=== PATIENT | male | born 1940 | race Caucasian/White ===

== ENCOUNTER 2024-07-17 09:43 | Outpatient (AMB) | payer MEDICARE, OTHER, SELFPAY ==
--- NOTE | 2024-07-17 09:57 | MHC.OFFVIS ---
Vital Signs 07/17/24 10:00 Height 5 ft 9 in Weight 175 lb BMI 25.8 Intake Visit Reasons: [employer] EX[employer]IC-Right shoulder pain Intake Note: Tushar is a 83 year old male who presents with complaints of progressively worsening right shoulder pain. The patient describes his pain as sharp in nature. His pain has gotten worse over the last year in spite of continued non operative treatments. He has taken Celebrex which gives him mild relief. He denies any weakness. He has also done physical therapy exercises which aggravated his pain. Allergies HAYFEVER Allergy (Unknown, Uncoded 06/10/20 14:48) RUNNY NOSE Medication List - Last Reconciled 07/17/24 by Real Draper MD celecoxib (Celebrex) 200 mg PO DAILY PRN Physical Exam Vital Signs: BMI result Body Mass Index 25.8 Const Other: Well-nourished well-developed very friendly male awake alert and oriented x3 in no acute distress Extrem Other: Bilateral upper extremity examination shows good capillary refill, no skin lesions noted, normal sensation light touch Right shoulder examination shows slightly decreased range of motion when compared to his left shoulder, 4+ out of 5 strength with supraspinatus testing, positive impingement signs, no instability Office Procedures Joint Injection/Aspiration Joint Injection/Aspiration Primary Site: right shoulder Prep: site was prepped using aseptic technique Injected: 40 mg of, DepoMedrol and 1% plain lidocaine Procedure: The patient tolerated the procedure well Coding 80027 - Large joint Procedure code (CPT) selection complete Results Reviewed Results Reviewed: X-rays of the patient's right shoulder show severe acromioclavicular joint narrowing, a type 2 acromion, no acute bony abnormalities Assessment & Plan Assessment & Plan (1) Impingement of right shoulder: Code(s): M25.811 - Other specified joint disorders, right shoulder Category: Medical Plan Mr. Ybarra presents with right shoulder pain due to impingement syndrome. I had a lengthy discussion with the patient regarding the treatment options. The risks and benefits of a right shoulder cortisone injection were discussed at length with the patient. The patient wished to proceed. He tolerated the injection well. He will continue with his home stretching program. He will contact me prior to his follow-up appointment in 3 months should any questions or concerns arise. Feel free to call me at any time should questions regarding his orthopedic management arise. I spent 22 minutes in reviewing the patient's records and imaging studies, seeing the patient and documenting in the medical record. Orders: Orders AMB Joint Injection/Aspiration 07/17/24 M25.811 - Other specified joint disorders, right shoulder XR shoulder RT min 2V 07/17/24 M25.511 - Pain in right shoulder Medications: New celecoxib (Celebrex) 200 mg PO DAILY PRN 30 caps 4RF pain Coding Level of Care Code New Pt Level 3 (05059) Complex EM visit Add On G2211 Diagnoses Impingement of right shoulder M25.811 CPT Codes Coding - 65660 Large joint: 52238 - Large joint ([id number])
[2024-07-17 10:00] VITALS: BMI 25.8
== END 2024-07-17 10:31 | disposition home or self-care (01) ==
PROVIDERS: PCP Internal Medicine; Visit Provider Orthopaedic Surgery
DX: M75.41 Impingement syndrome of right shoulder (principal); M25.811 Other specified joint disorders, right shoulder
CPT/HCPCS: 20610; 99203; G2211

== ENCOUNTER 2024-07-17 10:13 | Outpatient (REF) | payer MEDICARE, OTHER, SELFPAY | END 2024-07-17 10:14 | disposition home or self-care (01) | LOC: HO.HOSX 10:13 | PROVIDERS: Visit Provider Orthopaedic Surgery | DX: M25.511 Pain in right shoulder (principal); M25.811 Other specified joint disorders, right shoulder | CPT/HCPCS: 20610; 73030; 99202; J1010; J2003 ==

== ENCOUNTER 2024-10-15 10:57 | Outpatient (AMB) | payer MEDICARE, OTHER, SELFPAY ==
--- NOTE | 2024-10-15 11:00 | MHC.OFFVIS ---
Vital Signs 10/15/24 11:05 Height 5 ft 9 in Weight 175 lb BMI 25.8 Intake Visit Reasons: OV- Right shoulder pain Intake Note: Tushar is an 84 year old male who presents with complaints of right shoulder pain. He describes his pain as sharp in nature. He has had cortisone injections in the past which gave him fairly good relief. He has also tried Tylenol and Celebrex which gave him mild relief. He wishes hold off on surgery if at all possible. Allergies HAYFEVER Allergy (Unknown, Uncoded 10/15/24 11:06) RUNNY NOSE Medication List - Last Reconciled 10/15/24 by Real Draper MD celecoxib (Celebrex) 200 mg PO DAILY PRN Physical Exam Vital Signs: BMI result Body Mass Index 25.8 Const Other: Well-nourished well-developed very friendly male awake alert and oriented x3 in no acute distress Extrem Other: Bilateral upper extremity examination shows good capillary refill, no skin lesions noted, normal sensation light touch Right shoulder examination shows slightly decreased range of motion when compared to his left shoulder, 4+ out of 5 strength with supraspinatus testing, positive impingement signs, no instability Office Procedures AMB Joint Injection/Aspiration Joint Injection/Aspiration Primary Site: right shoulder Prep: site was prepped using aseptic technique Injected: 40 mg of, DepoMedrol and 1% plain lidocaine Procedure: The patient tolerated the procedure well Coding 11621 - Large joint Procedure code (CPT) selection complete Assessment & Plan Assessment & Plan (1) Impingement of right shoulder: Code(s): M25.811 - Other specified joint disorders, right shoulder Category: Medical Plan Mr. Ybarra presents with right shoulder pain due to impingement syndrome. The risks and benefits of a right shoulder cortisone injection were discussed at length with the patient. The patient wished to proceed. He tolerated the injection well. He will continue with his range of motion exercises to prevent stiffness. He will contact me prior to his follow-up appointment in 3 months should any questions or concerns arise. Feel free to call me at any time should questions regarding his orthopedic management arise. I spent 22 minutes in reviewing the patient's records and imaging studies, seeing the patient and documenting in the medical record. Orders: Orders AMB Joint Injection/Aspiration Today M25.811 - Other specified joint disorders, right shoulder Medications: Refilled celecoxib (Celebrex) 200 mg PO DAILY PRN 30 caps 4RF pain Coding Level of Care Code Est Pt Level 3 (65638) Complex EM visit Add On G2211 Diagnoses Impingement of right shoulder M25.811 CPT Codes Coding - 24062 Large joint: 82810 - Large joint ([id number])
[2024-10-15 11:05] VITALS: BMI 25.8
--- OUTSIDE RECORDS SUMMARY | 2024-10-15 12:26 | XMS_ITS ---
Author Organization [facility] Address [address] [place] [address] Care Team Providers Care Visitor Services Information Assistant Name Role Phone Ephraim Rios MD Primary Care Provider Radha Zamora Mayra Unavailable [phone] Allergies No Known Allergies REASON FOR VISIT Painful nail(s) aggrevated by shoes and causing difficulty standing/walking., Wart(s) Medications Medication SIG (Take, Route, Frequency, Duration) Notes Start Date End Date Status Ciclopirox Olamine 0.77 % 1 application to affected area Externally Twice a day for 30 days 04/24/2019 Not-Taking Ciclopirox Olamine 0.77 % 1 application Externally Twice a day for 30 days 03/18/2020 Not-Taking Ciclopirox Olamine 0.77 % 1 application Externally Twice a day for 30 days 11/03/2021 Not-Taking Multivitamin PRN Not-Kelton ing Ciclopirox Olamine 0.77 % 1 application Externally Twice a day for 30 days Not-Taking Social History Tobacco Use: Social History Observation Description Date Details (start date - stop date) Never Smoker NA - NA Tobacco Use/Smoking Question Answer Notes Are you a: nonsmoker Additional Findings: Tobacco Non-User Aggressive non-smoker Tobacco use other than smoking: Question Answer Notes Are you an other tobacco user? No Vital Signs Height 5 ft 9 in in 07/24/2024 Weight 175 lbs 07/24/2024 BMI 25.84 kg/m2 07/24/2024 Blood pressure systolic 117 mm Hg 07/24/20 24 Blood pressure diastolic 73 mm Hg 024 Procedures Procedure Date Ordered Date Performed Result Body Sit e 38322-NAYWFLC NAIL, 6 OR MORE 07/24/2024 N/A 25499-Pndk Destruction, 1-14 07/24/2024 N/A Encounters Encounter Location Date Provider Diagnosis [facility] [address] [address] 07/24/2024 Mayra Zamora Tinea unguium B35.1 ; Other viral warts B07.8 ; Pain in right toe(s) M79.674 ; Pain in left toe(s) M79.675 and Pain in right foot M79.671 Assessments Encounter Date Diagnosis (ICD Code) Assessment Notes Treatment Notes Treatment Clinical Notes Section Notes 07/24/2024 Tinea unguium (ICD-10 - B35.1) 07/24/2024 Other viral warts (ICD-10 - B07.8) 07/24/2024 Pain in right toe(s) (ICD-10 - M79.674) 07/24/2024 Pain in left toe(s) (ICD-10 - M79.675) 07/24/2024 Pain in right foot (ICD-10 - M79.671) Plan Of Treatment Pending Test Test Name Order Date 22187-MPJUYQL NAIL, 6 OR MORE 07/24/2024 02800-Frxo Destruction, 1-14 07/24/2024 Next Appt Details Follow Up: prn, Reason: Provider Name:Mayra Zamora , 11/20/2024 11:15:00 AM, [address] [place] [address], [id number], Procedure Notes * Category Sub-Category Detail Notes Wart Treatment Procedure Verrucae(s) were debrided to pin-point bleeding margins with sterile surgical blade, silver nitrate chemocautery applied, recomm. immune-boosting meds such as zinc, recomm. follow up with topical chemosurgical agents, Pt AGAIN, defer any other forms of tx (85961) , Debride Nail 6-10 Nail debridement Performance o f this nail treatment by a nonprofessional would put this patients foot and overall health at risk. Therefore, nail debridement was performed extensively to reduce/remove overall nail length, girth, thickness, subungual debris, and necrotic tissue, by manual and/or electrical means through the use of a nail nipper and/or dremel-type back grinder, to a more viable healthy nail plate or bed tissue 6-10. Silver nitrate used for any petechial bleeding as necessary. Definitive antifungal treatment options have been reviewed and discussed with the patient. The patient chooses, no pharmaceutical tx - 73612 Progress Notes * Tushar BELLODOB: 3 (83 yo M)Acc No.[id number]:07/24/2024 Progress Note Patient:?Tushar Bello Provider:?Mayra Zamora DPM :1940???Age:83 Y???Sex:Male Prakash e:07/24/2024 Address:[address] [place] [address], [facility], [id number] Pcp:Ephraim Rios MD Subjective: * Chief Complaints: * ??? Painful nail(s) aggrevat ed by shoes and causing difficulty standing/walking.Wart(s) * HPI: ???Painful Nails:?Pt States Last PCP Visit:?Date:?04/23/2024 ???Wart:?Pt States Last PCP Visit:?Date:?04/23/2024 * Medical History:? 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 * Social History:?Tobacco Use:?Tobacco Use/Smoking?Are you a:?nonsmoker ?Additional Findings: Tobacco Non-User?Aggressive non-smoker ?Tobacco use other than smoking?Are you an other tobacco user??No ???Miscellaneous:?no Caffeine, frequency: decaf coffee , 3-5 cups per day. ?Children: yes. ?Exercise: yes, walking. ?Marital status: single. ?Occupation: retired- [employer]. * Medications:?Not-Taking/PRNM ultivitamin , Notes: PRNCiclopirox Olamine 0.77 % Cream 1 application Externally Twice a dayCiclopirox Olamine 0.77 % Cream 1 application Externally Twice a dayCiclopirox Olamine 0.77 % Cream 1 application Externally Twice a dayCiclopirox Olamine 0.77 % Cream 1 application to affected area Externally Twice a dayMedication List reviewed and reconciled with the patientNot-Taking/PRN Multivitamin , Notes: PRNNot-Taking/PRN Ciclopirox Olamine 0.77 % Cream 1 application Externally Twice a dayNot-Taking/PRN Ciclopirox Olamine 0.77 % Cream 1 application Externally Twice a dayNot-Taking/PRN Ciclopirox Olamine 0.77 % Cream 1 application Externally Twice a dayNot-Taking/PRN Ciclopirox Olamine 0.77 % Cream 1 application to affected area Externally Twice a dayMedication List reviewed and reconciled with the patient * Allergies:?N.K.D.A.yes[Bruna gregory Verified] Objective: * Vitals:?Ht: 5 ft 9 in, Wt: 1 75, BMI: 25.84, Shoe size: 9.5-10, BP: 117/73 mm Hg, Wt-k.38 kg. * Examination: ???Nails: ?NAILS are:?elongated,overgrown,dystrophic,greater than 3mm thick,discolored and friable with crumbly malodorous subungual debris, with pain on palpation , 1-5 B/L ,.?Dermatologic: ?VERRUCA:?reveals Multiple ( 3), multi-loculated , mosaic, round, raised, flat-topped, petechial bleeding papulae(s), with cauliflower appearance and interrruption of skin lines, with pain to lateral compression, , plantar Midfoot, right. , and size estimated at 3-4 mm diameter?.? Assessment: * Assessment: 1.?Tinea unguium - B35.1?2.? Other viral warts - B07.8 (Primary)?3.?Pain in right toe(s) - M79.674?4.?Pain in left toe(s) - M79.675?5.?Pain in right foot - M79.671? Plan: * Treatment: 2.?Tinea unguium?Procedure: 04208-ULBWGAR NAIL, 6 OR MORE * Procedures:?Debride Nail 6-10:?Nail debridement?Performance of this nail treatment by a nonprofessional would put this patients foot and overall health at risk. Therefore, nail debridement was performed extensively to reduce/remove overall nail length, girth, thickness, subungual debris, and necrotic tissue, by manual and/or electrical means through the use of a nail nipper and/or dremel-type back grinder, to a more viable healthy nail plate or bed tissue 6-10. Silver nitrate used for any petechial bleeding as necessary. Definitive antifungal treatment options have been reviewed and discussed with the patient. The patient chooses, no pharmaceutical tx - 57950.?Wart Treatment:?Procedure?Verrucae(s) were debrided to pin-point bleeding margins with sterile surgical blade, silver nitrate chemocautery applied, recomm. immune-boosting meds such as zinc, recomm. follow up with topical chemosurgical agents, Pt AGAIN, defer any other forms of tx (02732) ,.? * Procedure Codes:?49306 DEBRI DE NAIL, 6 OR MORE, Modifiers: XS 85811 Wart Destruction, 1-14, Modifiers: XS * Follow Up:?prn * Images: * Sign off status: Completed true * Provider:?Mayra Zamora DPM Date:?2023 Generated for Karin diaz/Ramo/Silvia on:?10/15/2024 12:26 PM EST History and Physical Notes * HPI (History of Present Illness) Category Sub-Category Detail Notes Category Not es Painful Nails Pt States Last PCP Visit: Date:: 04/23/2024 Wart Pt States Last PCP Visit: Date:: 04/23/2024 Examination Category Sub-Category Detail Notes Category Not es Dermatologic SKIN FINDINGS: VERRUCA: reveals Multiple ( 3 ), multi-loculated , mosaic, round, raised, flat- topped, petechial bleeding papulae(s), with cauliflower appearance and interrruption of skin lines, with pain to lateral compression, , plantar Midfoot, right. , and size estimated at 3-4 mm diameter Orthopedic DIGITAL DEFORMITIES: Nails NAILS are: elongated,overgr own,dystrophic,greater than 3mm thick,discolored and friable with crumbly malodorous subungual debris, with pain on palpation , 1-5 B/L ,
--- OUTSIDE RECORDS SUMMARY | 2024-10-15 12:26 | XMS_ITS ---
Author Organization [facility] Address [address] [place] [address] Care Team Providers Care Systems Spec Name Role Phone Ephraim Rios MD Primary Care Provider ShareeMayra Samson Unavailable [phone] Allergies No Known Allergies REASON FOR VISIT Painful nail(s) aggrevated by shoes and causing difficulty standing/walking., Wart(s) Medications Medication SIG (Take, Route, Frequency, Duration) Notes Start Date End Date Status Multivitamin PRN Active Ciclopirox Olamine 0.77 % 1 application Externally Twice a day for 30 days 11/03/2021 Not-Taking Ciclopirox Olamine 0.77 % 1 application Externally Twice a day for 30 days Not-Taking Ciclopirox Olamine 0.77 % 1 application Externally Twice a day for 30 days 03/18/2020 Not-Taking Ciclopirox Olamine 0.77 % 1 application to affected area Externally Twice a day for 30 days 04/24/2019 Not-Taking Social History Tobacco Use: Social History Observation Description Date Details (start date - stop date) Never Smoker NA - NA Tobacco Use/Smoking Question Answer Notes Are you a: nonsmoker Additional Findings: Tobacco Non-User Aggressive non-smoker Alcohol Screen Question Answer Notes Did you have a drink containing alcohol in the p ast year? No Points 0 Interpretation Negative Tobacco use other than smoking: Question Answer Notes Are you an other tobacco user? No Vital Signs Height 5 ft 9 in in 03/20/2024 Weight 180 lbs 03/20/2024 BMI 26.58 kg/m2 03/20/2024 Blood pressure systolic 116 mm Hg 03/20/20 24 Blood pressure diastolic 75 mm Hg 024 Procedures Procedure Date Ordered Date Performed Result Body Sit e 57329-FQHQQLG NAIL, 6 OR MORE 03/20/2024 N/A 03272-Yzyq Destruction, 1-14 03/20/2024 N/A Encounters Encounter Location Date Provider Diagnosis [facility] [place] [address] [place] [address] 03/20/2024 Mayra Zamora Tinea unguium B35.1 ; Other viral warts B07.8 ; Pain in right toe(s) M79.674 ; Pain in left toe(s) M79.675 and Pain in right foot M79.671 Assessments Encounter Date Diagnosis (ICD Code) Assessment Notes Treatment Notes Treatment Clinical Notes Section Notes 03/20/2024 Tinea unguium (ICD-10 - B35.1) 03/20/2024 Other viral warts (ICD-10 - B07.8) 03/20/2024 Pain in right toe(s) (ICD-10 - M79.674) 03/20/2024 Pain in left toe(s) (ICD-10 - M79.675) 03/20/2024 Pain in right foot (ICD-10 - M79.671) Plan Of Treatment Pending Test Test Name Order Date 90688-ECEMQYA NAIL, 6 OR MORE 03/20/2024 91561-Lmlp Destruction, 1-14 03/20/2024 Next Appt Details Follow Up: prn, Reason: Provider Name:Mayra Zamora , 11/20/2024 11:15:00 AM, [address] [place], [address], Procedure Notes * Category Sub-Category Detail Notes Wart Treatment Procedure Verrucae(s) were debrided to pin-point bleeding margins with sterile surgical blade, silver nitrate chemocautery applied, recomm. immune-boosting meds such as zinc, recomm. follow up with topical chemosurgical agents, Pt STILL, CONT TO defer any other forms of tx (43016) , Debride Nail 6-10 Nail debridement Nail debridem ent performed extensively to reduce/remove overall nail length and girth, subungual debris, and necrotic tissue, by manual and electrical means with use of a nail nipper and/or dremel, to more viable healthy nail plate or bed tissue 6-10. Silver nitrate used for any petechial bleeding as necessary. Patient chooses, no pharmaceutical tx (77280) Progress Notes * Tushar BELLODOB: 3 (83 yo M)Acc No.[id number]:03/20/2024 Progress Note Patient:?Tushar Bello Provider:?Mayra Zamora DPM :1940???Age:83 Y???Sex:Male Prakash e:03/20/2024 Address:[address] [place], [place] [address]r'[facility], [facility], [facility] Pcp:Ephraim Rios MD Subjective: * Chief Complaints: * ??? Painful nail(s) aggrevat ed by shoes and causing difficulty standing/walking.Wart(s) * HPI: ???Painful Nails:?Pt States Last PCP Visit:?Date:?03/19/2024 ???Wart:?Pt States Last PCP Visit:?Date:?03/19/2024 * Medical History:? 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 * Social History:?Tobacco Use:?Tobacco Use/Smoking?Are you a:?nonsmoker ?Additional Findings: Tobacco Non-User?Aggressive non-smoker ?Tobacco use other than smoking?Are you an other tobacco user??No ???Drugs/Alcohol:?Drugs?Have you used drugs other than those for medical reasons in the past 12 months??No ?Alcohol Screen?Did you have a drink containing alcohol in the past year??No ?Points?0 ?Interpretation?Negative ???Miscellaneous:?no Caffeine, frequency: decaf coffee , 3-5 cups per day. ?Children: yes. ?Exercise: yes, walking. ?Marital status: single. ?Occupation: retired- [employer]. * Medications:?TakingMultivita min , Notes: PRNTaking Multivitamin , Notes: PRNNot-Taking/PRNCiclopirox Olamine 0.77 % Cream 1 application Externally Twice a dayCiclopirox Olamine 0.77 % Cream 1 application Externally Twice a dayCiclopirox Olamine 0.77 % Cream 1 application Externally Twice a dayCiclopirox Olamine 0.77 % Cream 1 application to affected area Externally Twice a dayMedication List reviewed and reconciled with the patientNot-Taking/PRN Ciclopirox Olamine 0.77 % Cream 1 application Externally Twice a dayNot-Taking/PRN Ciclopirox Olamine 0.77 % Cream 1 application Externally Twice a dayNot-Taking/PRN Ciclopirox Olamine 0.77 % Cream 1 application Externally Twice a dayNot-Taking/PRN Ciclopirox Olamine 0.77 % Cream 1 application to affected area Externally Twice a dayMedication List reviewed and reconciled with the patient * Allergies:?N.K.D.A.yes[Aller gies Verified] Objective: * Vitals:?Ht: 5 ft 9 in, Wt: 1 80, BMI: 26.58, Shoe size: 9.5-10, BP: 116/75 mm Hg, Wt-k.65 kg. * Examination: ???Nails: ?NAILS are:?elongated,overgrown,dystrophic,greater than 3mm thick,discolored and friable with crumbly malodorous subungual debris, with pain on palpation , 1-5 B/L ,.?Dermatologic: ?VERRUCA:?reveals Multiple ( 2), multi-loculated , mosaic, round, raised, flat-topped, petechial [...] - M79.671? Plan: * Treatment: 2.?Tinea unguium?Procedure: 50214-NEDZKKX NAIL, 6 OR MORE * Procedures:?Debride Nail 6-10:?Nail debridement?Nail debridement performed extensively to reduce/remove overall nail length and girth, subungual debris, and necrotic tissue, by manual and electrical means with use of a nail nipper and/or dremel, to more viable healthy nail plate or bed tissue 6-10. Silver nitrate used for any petechial bleeding as necessary. Patient chooses, no pharmaceutical tx (27503) .?Wart Treatment:?Procedure?Verrucae(s) were debrided to pin-point bleeding margins with sterile surgical blade, silver nitrate chemocautery applied, recomm. immune-boosting meds such as zinc, recomm. follow up with topical chemosurgical agents, Pt STILL, CONT TO defer any other forms of tx (89128) ,.? * Procedure Codes:?93223 DEBRI DE NAIL, 6 OR MORE, Modifiers: XS 69906 Wart Destruction, 1-14, Modifiers: XS * Follow Up:?prn * Images: * Sign off status: Completed true * Provider:?Mayra Zamora DPM Date:?2023 Generated for Karin diaz/Ramo/eTransmitting on:?10/15/2024 12:26 PM EST History and Physical Notes * HPI (History of Present Illness) Category Sub-Category Detail Notes Category Not es Painful Nails Pt States Last PCP Visit: Date:: 03/19/2024 Wart Pt States Last PCP Visit: Date:: 03/19/2024 Examination Category Sub-Category Detail Notes Category Not es Dermatologic SKIN FINDINGS: VERRUCA: reveals Multiple ( 2 ), multi-loculated , mosaic, round, raised, flat- [...]
--- OUTSIDE RECORDS SUMMARY | 2024-10-15 12:27 | XMS_ITS ---
Author Organization [facility] Address [address] [place] [address] Care Team Providers Care Wood Tank Erector Name Role Phone Blanca FLOWERS, Ephraim Primary Care Provider Mayra Pool [phone] Encounters Encounter Location Date Provider Diagnosis [address] [address] 03/13/2024 Mayra Zamora Plan Of Treatment Next Appt Details Provider Name:Mayra Zamora , 11/20/2024 11:15:00 AM, [address] [place], [address], Progress Notes * Tushar BELLODOB: 3 (84 yo M)Acc No.[id number]:03/13/2024 Progress Note Patient:?Tushar BELLO Provider:?Mayra Zamora DPM :1940???Age:83 Y???Sex:Male Prakash e:03/13/2024 Address:[address] [place], [place] [address] Pcp:Ephraim Rios MD Subjective: * Chief Complaints: * ??? * Medical History:? Objective: * Vitals:? Assessment: Plan: * Treatment: * Images: * The named appointment provid er may or may not be the originator of this progress note, and it is not deemed complete until electronically signed by the appointment provider. Sign off status: Pending * Provider:Salvatore Zamora DPM Date:?2023 Generated for Karin diaz/Ramo/Silvia on:?10/15/2024 12:26 PM EST
--- OUTSIDE RECORDS SUMMARY | 2024-10-15 12:27 | XMS_ITS | Patient Health Record ---
[facility] Address [address] [place] [address] Care Team Providers Care Clinical Outcomes Manager Name Role Phone Ephraim Rios MD Primary Care Provider Radha ZamoraMayra Unavailable [phone] Allergies No Known Allergies Reason For Referral No Information Medications Medication SIG (Take, Route, Frequency, Duration) [...] Twice a day for 30 days Not-Taking Immunizations Vaccine Route Administration Date Status Comme nts COVID-19 Moderna Vaccine Unknown 10/13/2021 Administered First Dose: 10/25/2020 Second Dose: 11/22/2020 Social History Tobacco Use: Social History Observation [...] Are you an other tobacco user? 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) Active confirmed Problem Acquired hammer toe of right foot (1146985332950 105) Other hammer toe(s) (acquired), right foot (M20.41) Active confirmed Problem Acquired hammer toe of left foot (3217562721418 103) Other hammer toe(s) (acquired), left foot (M20.42) Active confirmed Vital Signs Blood pressure diastolic 73 mm Hg 07/24/2024 Height 5 ft 9 in in 07/24/2024 Blood pressure systolic 117 mm Hg 07/24/2024 Weight 175 lbs 07/24/2024 BMI 25.84 kg/m2 07/24/2024 Procedures Procedure Date Ordered Date Performed Result Body Sit e 16622-VANGFWE NAIL, 6 OR MORE 11/22/2023 N/A 75469-Hcjy Destruction, 1-14 11/22/2023 N/A 04805-EDXLHVH NAIL, 6 OR MORE 03/20/2024 N/A 82502-Dkkf Destruction, 1-14 03/20/2024 N/A 18276-BUJCSFN NAIL, 6 OR MORE 07/24/2024 N/A 82743-Gpur Destruction, 1-07/24/2024 N/A Encounters Encounter Location Date Provider Diagnosis [address] [address] 11/22/2023 Mayra Black Tinea unguium B35.1 ; Other viral warts B07.8 ; Pain in right toe(s) M79.674 ; Pain in left toe(s) M79.675 and Pain in right foot M79.[address] [address] 03/20/2024 Mayra Black Tinea unguium B35.1 ; Other viral warts B07.8 ; Pain in right toe(s) M79.674 ; Pain in left toe(s) M79.675 and Pain in right foot M79.671 [facility] [address] 07/24/2024 Mayra Black Tinea unguium B35.1 ; Other viral warts B07.8 ; Pain in right toe(s) M79.674 ; Pain in left toe(s) M79.675 and Pain in right foot M79.671 [facility] [place] [address] [place] [address] 11/30/2023 Mayra Black Assessments Encounter Date Diagnosis (ICD Code) Assessment Notes Treatment Notes Treatment Clinical Notes Section Notes 11/22/2023 Tinea unguium (ICD-10 - B35.1) 03/20/2024 Tinea unguium (ICD-10 - B35.1) 07/24/2024 Tinea unguium (ICD-10 - B35.1) 11/22/2023 Other viral warts (ICD-10 - B07.8) 03/20/2024 Other viral warts (ICD-10 - B07.8) 07/24/2024 Other viral warts (ICD-10 - B07.8) 11/22/2023 Pain in right toe(s) (ICD-10 - M79.674) 03/20/2024 Pain in right toe(s) (ICD-10 - M79.674) 07/24/2024 Pain in right toe(s) (ICD-10 - M79.674) 07/24/2024 Pain in left toe(s) (ICD-10 - M79.675) 03/20/2024 Pain in left toe(s) (ICD-10 - M79.675) 11/22/2023 Pain in left toe(s) (ICD-10 - M79.675) 11/22/2023 Pain in right foot (ICD-10 - M79.671) 03/20/2024 Pain in right foot (ICD-10 - M79.671) 07/24/2024 Pain in right foot (ICD-10 - M79.671) Plan Of Treatment Pending Test Test Name Order Date 33378-QPQCVKN NAIL, 6 OR MORE 04/24/2019 56785-QRWKZVH NAIL, 6 OR MORE 09/01/2019 07027-KISMGVD NAIL, 6 OR MORE 12/15/2019 02610-JYUPVRU NAIL, 6 OR MORE 03/18/2020 88647-SURGYKZ NAIL, 6 OR MORE 06/17/2020 41931-XCOQUNW NAIL, 6 OR MORE 10/04/2020 52328-BGHIPPM NAIL, 6 OR MORE 01/03/2021 33413-SWBLZUF NAIL, 6 OR MORE 04/07/2021 39482-IJKGLJB NAIL, 6 OR MORE 07/21/2021 26947-YDMFVIG NAIL, 6 OR MORE 11/03/2021 51126-KQBKGMZ NAIL, 6 OR MORE 03/20/2022 60677-RNPOJVS NAIL, 6 OR MORE 06/29/2022 52913-ZLNUBHE NAIL, 6 OR MORE 10/19/2022 79671-DVJBXSF NAIL, 6 OR MORE 01/25/2023 99506-NGHEMUF NAIL, 6 OR MORE 04/26/2023 60475-XMAXWTZ NAIL, 6 OR MORE 08/09/2023 40662-RYRQVPF NAIL, 6 OR MORE 11/22/2023 38465-AGVEZGS NAIL, 6 OR MORE 03/20/2024 37837-NJHMAJH NAIL, 6 OR MORE 07/24/2024 56729-Zpfu Destruction, 1-14 07/24/2024 61556-Vcrs Destruction, 1-14 01/25/2023 76751-Xhnb Destruction, 1-14 03/20/2024 24348-Sdkm Destruction, 1-14 11/22/2023 21678-Qlov Destruction, 1-14 08/09/2023 39384-Gber Destruction, 1-14 04/26/2023 91166-Uenb Destruction, -14 03/20/2022 48288-Szmt Destruction, 1-14 10/19/2022 44466-Ybia Destruction, 1-14 06/29/2022 83302-Brot Destruction, -14 11/03/2021 62005-Eywx Destruction, -14 07/21/2021 49112-Nrdc Destruction, -14 04/07/2021 19520-Buwz Destruction, 1-14 01/03/2021 39414-Mwge Destruction, 1-14 03/18/2020 45506-Eyak Destruction, -14 10/04/2020 31681-Ausn Destruction, 1-14 06/17/2020 96934-Lvgk Destruction, -14 12/15/2019 74510-Ylph Destruction, -14 09/01/2019 01279-Ivpy Destruction, -14 04/24/2019 99666-Pmvalxtk Plate 04/24/2019 64868-Miwrdkhk Plate 09/01/2019 38674-Scgyndms Plate 03/18/2020 67153-Xesjcsqb Plate 10/04/2020 20741-Lxgiyych Plate 01/03/2021 53928-Jdroxzen Plate 11/03/2021 07306-Vfxiokbd Plate 01/25/2023 08928-Kgzulvqe Plate Each Additional 12/2022 58878-Nyopqdfq Plate Each Additional 05/2019 73273- Debride <25 sq cm 10/04/2020 Next Appt Details Provider Name:Mayra Zamora , 11/20/2024 11:15:00 AM, [address] [facility], [place], [address], Insurance Providers Payer Name Payer Address Payer Phone Subscriber Number Group Number Insured Name Patient Relationship to Insured Coverage Start Date Coverage End Date [employer] [address] [place] [address] [phone] [id number] Tushar Ybarra Self - patient is the insured [facility] [address] [place] [address] [id number] Tushar Ybarra Self - patient is the insured Medical (General) History Medical History History ICD Code Back,Hip,and Knee pain Cancer Warts Measles Mumps Chicken pox Joint implants/screws Transfusions Surgical History Surgery Date(Month/Year) hip replacement 2018/2013/2009 cancer 2006 prostatectomy
== END 2024-10-15 11:28 | disposition home or self-care (01) ==
PROVIDERS: PCP Internal Medicine; Visit Provider Orthopaedic Surgery
DX: M25.811 Other specified joint disorders, right shoulder (principal)
CPT/HCPCS: 20610; 99213

== ENCOUNTER → 2024-10-15 10:57 | Outpatient (BNVA) | payer MEDICARE, OTHER, SELFPAY | PROVIDERS: PCP Internal Medicine; Visit Provider Orthopaedic Surgery | DX: M25.811 Other specified joint disorders, right shoulder (principal) | CPT/HCPCS: 20610; 99212; J1010; J2003 ==